=== PATIENT | female | born 1935 | race Hispanic/Latino ===

== ENCOUNTER 2017-05-05 08:43 | Outpatient (CLI) | payer MEDICARE ==
--- NOTE | 2017-05-05 09:34 | XRay Report ---
KUB: 05/05/17 CLINICAL: Weight loss. FINDINGS: Normal bowel gas pattern. No distended bowel and no air-fluid levels. No mass or suspicious calcifications. Phleboliths in the pelvis. A right upper quadrant benign calcification. Degenerative change in the spine. Lucencies of the right pubic bone and the left acetabulum. IMPRESSION: Lucencies of the bony pelvis suggests possible myeloma or metastatic disease. Consider x-rays of the pelvis and a metabolic bone survey. Otherwise negative study.
== END 2017-05-05 08:44 | disposition home or self-care (01) ==
LOC: SPVIMAG 08:43
PROVIDERS: ATTEND Internal Medicine
DX: M89.8X8 Other specified disorders of bone, other site (principal); R63.4 Abnormal weight loss; I87.8 Other specified disorders of veins
CPT/HCPCS: 74000

== ENCOUNTER 2017-05-20 09:56 | Outpatient (CLI) | payer MEDICARE ==
--- NOTE | 2017-05-20 10:51 | XRay Report ---
AP PELVIS: Pain. AP view of the pelvis shows normal pelvic contour and soft tissues. The hips are symmetric and within normal limits as are the sacroiliac joints. IMPRESSION: Normal pelvis.
== END 2017-05-20 09:57 | disposition home or self-care (01) ==
LOC: SPVIMAG 09:56
PROVIDERS: ATTEND Internal Medicine
DX: R10.2 Pelvic and perineal pain (principal)
CPT/HCPCS: 72170